=== PATIENT | female | born 1990 | race African-American/Black ===

== ENCOUNTER 2018-01-23 07:40 | Emergency (ER) | payer SELFPAY ==
[~2018-01-23] VITALS: Ht 167.6 cm; Wt 71.0 kg
[2018-01-23] MEDS ORDERED: CEFTRIAXONE 1 G PREMIX 50 ML IV ONE (09:15)
[2018-01-23] MEDS ORDERED: DEXAMETHASONE 10 MG/ML VIAL IV ONE (09:15)
[2018-01-23] MEDS ORDERED: SODIUM CHLORIDE 0.9% 1,000 ML IV ONE (09:15)
[2018-01-23] MEDS ORDERED: KETOROLAC 30MG/ML VIAL IV ONE (09:15)
[2018-01-23 09:26] LABS: BASOPHILS % 0.4 % (0.0-2.0); EOSINOPHILS % 0.4 % (0.0-5.0); HEMATOCRIT. 32.9 % (36.0-48.0); HEMOGLOBIN. 10.5 g/dL (12.0-16.0); LYMPHOCYTES % 7.2 % (20.0-50.0); MEAN CORPUSCULAR HEMOGLOBIN 24.3 pg (28.0-32.0); MEAN CORPUSCULAR VOLUME 76.3 fL (81.0-99.0); MEAN PLATELET VOLUME 7.4 fl (7.4-10.4); MONOCYTES % 8.9 % (2.0-8.0); NEUTROPHILS % 83.1 % (40.0-76.0); PLATELET 340 x1000/uL (130-400); RED BLOOD CELL COUNT 4.32 mill/uL (4.2-5.4); RED CELL DISTRIBUTION WIDTH 16.5 % (11.6-14.6)
[2018-01-23 09:32] LABS: CHLORIDE 106 mEq/L (98-107)
[2018-01-23 10:09] LABS: HCG SCREEN NEGATIVE
[2018-01-23] MEDS ORDERED: TETRACAINE/BENZOCAINE/BUTAMBEN 20 GM SPRAY MM ONE (12:15)
[2018-01-23 13:45] VITALS: BP 120/73
[2018-01-23] MEDS ORDERED: ACETAMINOPHEN 650MG/20.3ML UDC PO ONE (13:45)
[2018-01-23] MEDS ORDERED: IOHEXOL-300 100 ML BOTTLE ONE (14:41)
== END 2018-01-23 13:47 | disposition home or self-care (01) ==
LOC: ER 08:12
DX: J36 Peritonsillar abscess (principal)
CPT/HCPCS: 36415; 42700; 70491; 80048; 84703; 85025; 87430; 96361; 96365; 96375; 99285; J0696; J1100; J1885; J7030; Q9967; Z7610